=== PATIENT | male | born 1980 | race Caucasian/White ===

== ENCOUNTER 2017-04-29 16:29 | Emergency (ER) | payer BC ==
[~2017-04-29] VITALS: Ht 170.2 cm; Wt 103.2 kg
[2017-04-29] MEDS ORDERED: SODIUM CHLORIDE 0.9% 1,000 ML IV ONE (16:43)
[2017-04-29] MEDS ORDERED: SODIUM CHLORIDE 0.9% 1,000ML IVBOLUS ONE (17:00)
[2017-04-29] MEDS ORDERED: ACETAMINOPHEN 500 MG TABLET PO ONE (17:00)
[2017-04-29] MEDS ORDERED: ACETAMINOPHEN 500 MG TABLET ONE (17:10)
[2017-04-29 17:33] LABS: BLOOD UREA NITROGEN 11 mg/dL (7-18)
[2017-04-29 20:31] VITALS: BP 116/55
[2017-04-30 08:33] LABS: ANTISTREPTOLYSIN-O TITER 200 IU/mL
== END 2017-04-29 20:33 | disposition home or self-care (01) ==
LOC: ED 17:47
DX: B38.0 Acute pulmonary coccidioidomycosis (principal)
CPT/HCPCS: 36415; 71020; 80048; 81001; 82040; 83605; 84145; 85025; 85651; 86060; 86063; 86141; 86480; 86635; 87040; 96360; 96361; 99285; J7030